=== PATIENT | male | born 1960 | race Caucasian/White ===

== ENCOUNTER → 2016-12-01 | Outpatient (CLI) | payer OTHER ==
[2016-12-01 09:59] LABS: BASO % 0.5 %; BASO ABS # 0.04 K/uL (0-0.2); COMPLETE YES; HEMATOCRIT 45.6 % (42-52); IG% 0.5 %; LYMPH % 29.5 %; LYMPH ABS # 2.25 K/uL (1.2-3.4); MEAN CELL VOLUME 82.2 fL (80-100); MEAN CORPUSCULAR HEMOGLOBIN 29.4 pg (25-34); MEAN CORPUSCULAR HGB CONC 35.7 g/dl (32-36); MEAN PLATELET VOLUME 10.5 fL (7.4-10.4); MONO % 7.6 %; NEUT % 56.9 %; PLATELET COUNT 217 K/uL (130-400); RED BLOOD COUNT 5.55 M/uL (4.7-6.1); WHITE BLOOD COUNT 7.62 K/uL (4.8-10.8)
[2016-12-01 10:21] LABS: ESTIMATED AVERAGE GLUCOSE 120 mg/dl; HA1C FLAG Normal (Normal)
[2016-12-01 10:29] LABS: ALT/SGPT 50 U/L (12-78); BLOOD UREA NITROGEN 13 mg/dl (7-18); BUN/CREATININE RATIO 11.5 (10-20); CALCIUM 9.5 mg/dl (8.5-10.1); CARBON DIOXIDE 25 mmol/L (21-32); CHLORIDE 103 mmol/L (98-107); CHOLESTEROL 223 mg/dl (0-200); GLUCOSE 100 mg/dl (70-99); POTASSIUM 3.5 mmol/L (3.5-5.1); SODIUM 137 mmol/L (136-145)
[2016-12-01 10:40] LABS: ALB/GLOB RATIO 1.3 (0.9-2); ALKALINE PHOSPHATASE 43 U/L (45-117); AST/SGOT 28 U/L (15-37); HDL CHOLESTEROL 45 mg/dl; LDL CHOLESTEROL CALCULATED 136 mg/dl; TRIGLYCERIDES 209 mg/dl (0-150); VERY LOW DENSITY LIPOPROT CALC 42 mg/dl
== END | disposition home or self-care (01) ==
LOC: C.LAB1850 09:27
PROVIDERS: ATTEND Internal Medicine Pulmonary Disease
DX: J45.909 Unspecified asthma, uncomplicated (principal); I10 Essential (primary) hypertension; J30.9 Allergic rhinitis, unspecified; E11.9 Type 2 diabetes mellitus without complications; E78.5 Hyperlipidemia, unspecified

== ENCOUNTER → 2017-09-14 | Outpatient (CLI) | payer OTHER ==
[2017-09-14 10:31] LABS: ALT/SGPT 54 U/L (12-78); BLOOD UREA NITROGEN 16 mg/dl (7-18); BUN/CREATININE RATIO 14.8 (10-20); CALCIUM 9.2 mg/dl (8.5-10.1); CARBON DIOXIDE 25 mmol/L (21-32); CHLORIDE 103 mmol/L (98-107); CHOLESTEROL 242 mg/dl (0-200); GLUCOSE 100 mg/dl (70-99); POTASSIUM 3.7 mmol/L (3.5-5.1); SODIUM 136 mmol/L (136-145); TRIGLYCERIDES 286 mg/dl (0-150); VERY LOW DENSITY LIPOPROT CALC 57 mg/dl
[2017-09-14 10:34] LABS: ALKALINE PHOSPHATASE 48 U/L (45-117); AST/SGOT 29 U/L (15-37); CHOLESTEROL/HDL RATIO 6.7; HDL CHOLESTEROL 36 mg/dl; LDL CHOLESTEROL CALCULATED 149 mg/dl
[2017-09-14 11:15] LABS: ESTIMATED AVERAGE GLUCOSE 128 mg/dl; HA1C FLAG Normal (Normal)
== END | disposition home or self-care (01) ==
LOC: C.LAB1850 09:24
PROVIDERS: ATTEND Physician Assistant
DX: J45.909 Unspecified asthma, uncomplicated (principal); J30.9 Allergic rhinitis, unspecified; E11.9 Type 2 diabetes mellitus without complications; E78.5 Hyperlipidemia, unspecified

== ENCOUNTER 2024-03-26 15:25 | Inpatient (IN) ==
--- NOTE | 2024-03-26 15:33 | Emergency Department Note ---
Impression & Plan Stroke-like symptoms ED Provider Note Provider: Andi Joe MD DATE OF SERVICE: 03/26/2024 CHIEF COMPLAINT: Stroke alert HISTORY OF PRESENT ILLNESS: Patient is a 63-year-old gentleman history of diabetes and hypertension as well as significantly stroke/ICH in August of this year with some resultant left-sided deficit presenting here today due to development of a facial droop and some left-sided numbness. Has some chronic weakness in the left arm and leg. Was here today at the hospital for a outpatient MRI when symptoms developed and came to the ER. Made a stroke alert from triage. No headache or trauma or syncope reported. does confirm that it seemed like it bit of facial droop. Patient self denies any dizziness or headache. Symptoms started at 3:30 PM. Does not even take aspirin as he was told he cannot take this. PAST MEDICAL HISTORY: As noted above MEDICATIONS: Reviewed home medications SOCIAL HISTORY: PHYSICAL EXAM: GENERAL: alert and oriented in no acute distress on stretcher Head: normocephalic and atraumatic EYES: No injection, discharge or icterus. PERRL, EOMI. NECK: Trachea midline. ENT: Mucous membranes pink and moist. LUNGS: Airway patent. No retractions. Breath sounds clear HEART: Regular rate and rhythm. No chest wall tenderness ABDOMEN: Soft and non-tender, without guarding or rebound. SKIN: Acyanotic, warm, dry, without rashes EXTREMITIES: Without swelling, tenderness or deformity foot drop brace in place in the left lower leg NEUROLOGICAL: Good strength leg raise on the left but diminished left foot drop. Diminished sensation left arm and leg as well as left cheek. Some left facial droop appreciable. No tongue deviation. Very slight slurred speech but no aphasia. Good strength of the right arm and again of the right leg. No numbness or tingling on the right arm or leg. EK bpm normal sinus rhythm. No PVC or PAC. No acute ST segment elevation or depression with a QTc of 440. CONTINUOUS CARDIAC MONITORING: was ordered and showed a heart rate of 80s bpm in normal sinus rhythm Patient's laboratory studies and imaging reviewed. Differential includes Infection, dehydration, metabolic abnormality, hypo/hyperglycemia, electrolyte disturbance, anemia, hypoxia, cardiac sources, intracerebral event, toxicologic, neurologic, as well as other pathologies. IMPRESSION/MEDICAL DECISION MAKING: Patient with some chronic deficits due to prior ICH/CVA in the past. CT of the head without acute bleed here today per radiology. CT angiogram was with some 30% bilateral stenosis as well as now what appears to be a new high-grade stenosis of the right cavernous ICA due to plaque. No other aneurysms reported. Patient with reports of some increased again numbness to left arm and leg and left face as well as middle of facial droop but able to converse. No indication for thrombolytics given history of unprovoked ICH in August. Angios without LVO for acute intervention. No seizure activity reported. Basic blood obtained. Question this could represent small CVA versus some kind of recrudescent pattern given history of left basal ganglia bleed in the past. Discussed with him and his coming into the hospital for further evaluation. Discussed with him need for MRI and further evaluation patient agreeable. Hospitalist team contacted. DIAGNOSIS: Strokelike symptoms DISPOSITION: Hospitalist will evaluate Patient was agreeable with this plan. 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) Family history of colon cancer in father Allergic rhinitis (Chronic) Vitamin D deficiency (Chronic) Hypertriglyceridemia (Chronic) Elevated liver enzymes (Chronic) Obesity (BMI 30-39.9) (Chronic) Nocturnal hypoxemia (Chronic) Erectile dysfunction Asthma (Chronic) per pt well controlled--uses inhalers prn Dyslipidemia (Chronic) Hypertension (Chronic) Severe obstructive sleep apnea (Chronic) cpap BPH (benign prostatic hyperplasia) Medical History Stroke Epistaxis Sinusitis with nasal polyps Seborrheic keratosis Lipoma Gout History of COVID-19 Hearing deficit Nasal congestion Prostatitis Type 2 diabetes mellitus Surgical History History of colonoscopy (~2022) History of wisdom tooth extraction S/P nasal endoscopy with nasal polypectomy History of hernia repair Family History Unknown No problems noted. Father Asthma Allergic rhinitis Hypertension Stroke Colon cancer Skin cancer Son Asthma Mother Pancreatic cancer Other No family history of adverse response to anesthesia No family history of bleeding disorder Social History Smoking Status: Never smoker Second Hand Exposure: No; Do You Dip or Chew Tobacco: No; Hx Alcohol Use: Yes Alcohol type: beer Alcohol Intake Frequency Comment: occasionally Hx Substance Use: No Preferred Language: Syrian Communication Ability: Effective Brush Polisher Required: No Beliefs That Will Affect Care: None marital status: / Current Living Situation: Spouse current occupational status: employed current occupation: construction Feels Safe at Home: Yes Assistive Devices: CPAP Allergies Allergies Allergy/AdvReac Type Severity Reaction Status Date / Time Tetracyclines Allergy Intermediate Hives Verified 03/26/24 16:00 Home Meds Home Medications Medication Instructions Recorded Confirmed fluticasone propionate 50 2 spray intranasal QAM 06/02/23 03/26/24 mcg/actuation nasal spray,suspension acetaminophen 325 mg tablet 650 mg PO Q6H PRN Pain (Scale 09/09/23 03/26/24 (Tylenol) Score 1-3) cholecalciferol (vitamin D3) 25 75 mcg PO DAILY 09/09/23 03/26/24 mcg (1,000 unit) capsule (Vitamin D3) mometasone-formoterol HFA 100 2 puff inhalation BID 09/25/23 03/26/24 mcg-5 mcg/actuation aerosol inhaler (Dulera) Previous Rx's Medication Instructions Recorded lancets 30 gauge (OneTouch Delica #100 ea 07/24/20 Lancets) OneTouch Verio test strips (blood #100 ea 08/09/21 sugar diagnostic) CPAP Machine #1 ea 01/10/22 icosapent ethyl 1 gram capsule 2 g (2 x 1 gram) PO BID #360 caps 09/25/23 (Vascepa) metformin 500 mg tablet,extended 1,000 mg (2 x 500 mg) PO QDD #180 09/25/23 release 24 hr tabs tamsulosin 0.4 mg capsule (Flomax) 0.4 mg PO DAILY #90 caps 09/25/23 carvedilol 6.25 mg tablet 6.25 mg PO BID #180 tabs 10/02/23 hydrochlorothiazide 25 mg tablet 25 mg PO DAILY #90 tabs 10/02/23 lisinopril 40 mg tablet 40 mg PO DAILY #30 tabs 10/10/23 pen needle, diabetic 32 gauge x #100 ea 10/12/2332" (BD Ultra-Fine Ana M Pen Needle) insulin glargine 100 unit/mL (3 40 unit (0.4 mL) subcut HS #45 mL 11/30/23 mL) subcutaneous pen (Lantus Solostar U-100 Insulin) montelukast 10 mg tablet 10 mg PO DAILY #90 tabs 01/22/24 pravastatin 40 mg tablet 40 mg PO DAILY #90 tabs 02/13/24 Results & Data (ED) Vital Signs Vital Signs - 24 hr 03/26/24 15:26 03/26/24 15:45 03/26/24 15:45 Temperature 36.7 C Temperature Source Oral Pulse Rate 89 Pulse Rate from SpO2 Sensor Respiratory Rate 16 Blood Pressure 165/88 H 161/88 H 161/88 H Blood Pressure Mean 113 116 116 Pulse Oximetry 95 Oxygen Delivery Method Room Air Oxygen Flow Rate Sepsis Recent Fever Within 48 Hours No Sepsis New/Unexplained Change in Mental Status Yes Sepsis Action Taken by Nursing No Action Required 03/26/24 15:53 03/26/24 15:54 03/26/24 16:00 Temperature Temperature Source Pulse Rate 87 80 Pulse Rate from SpO2 Sensor 78 Respiratory Rate 18 19 Blood Pressure 153/92 H Blood Pressure Mean 131 Pulse Oximetry 96 98 Oxygen Delivery Method Room Air Oxygen Flow Rate 0 Sepsis Recent Fever Within 48 Hours Sepsis New/Unexplained Change in Mental Status Sepsis Action Taken by Nursing 03/26/24 16:00 Temperature Temperature Source Pulse Rate 83 Pulse Rate from SpO2 Sensor 81 Respiratory Rate 19 Blood Pressure Blood Pressure Mean Pulse Oximetry 95 Oxygen Delivery Method Oxygen Flow Rate Sepsis Recent Fever Within 48 Hours Sepsis New/Unexplained Change in Mental Status Sepsis Action Taken by Nursing Laboratory Data 03/26/24 15:50 03/26/24 15:50 Lab Results 03/26/24 03/26/24 03/26/24 Range/Units 15:46 15:50 15:54 WBC 6.54 (4.8-10.8) K/ul RBC 4.99 (4.70-6.10) M/uL Hgb 14.8 (14.0-18.0) g/dl POC Hgb 13.3 L (14.0-18.0) g/dl Hct 40.3 L (42.0-52.0) % POC Hct 39 L (42-52) % MCV 80.8 (80.0-100.0) fL MCH 29.7 (25.0-34.0) pg MCHC 36.7 H (32.0-36.0) g/dL RDW Std Deviation 37.9 (36.4-46.3) fL RDW Coeff of Serge 13.2 (11.5-14.5) % Plt Count 228 (130-400) K/uL MPV 10.2 (9.4-12.4) fL POC Sodium 137 (135-144) mmol/L POC Potassium 3.3 (3.3-5.0) mmol/L POC Chloride 100 L (101-112) mmol/L POC Total CO2 25 (24-31) mmol/L POC Anion Gap 16.0 (16-25) mmol/L POC BUN 11 (7-18) mg/dl POC Creatinine 0.8 (0.6-1.3) mg/dl POC Glucose 103 H (70-99) mg/dl POC Glucose (other) 101 H (70-99) mg/dl POC Ioniz Calcium Anneliese 1.16 (1.12-1.32) mmol/l Administered Medications Discontinued Medications Ioversol (Optiray 320 125ml) 116 ml IV ONCE ONE Stop: 03/26/24 15:38 Last Admin: 03/26/24 15:37 Dose: 116 ml Documented By: MYNOR Imaging Data Radiologist's Impression: Chest X-Ray 03/26/24 15:28 XR chest 1V portable HISTORY: 63 years-old Male stroke alert acute strokelike symptoms COMPARISON: 09/09/2023 TECHNIQUE: AP view the chest FINDINGS: Cardiomediastinal and hilar silhouettes are unchanged. No pneumothorax or pleural effusion. The lungs are clear. Spondylotic spurring of the spine. IMPRESSION: No acute process. ACT 112: Negative or not required by law. The above report was generated using voice recognition software. It may contain grammatical, syntax or spelling errors. Electronically signed by: Vinicius Osman M.D. 03/26/2024 4:[address] 03/26/24 15:28 CT SCAN OF THE BRAIN WITHOUT IV CONTRAST CLINICAL HISTORY: Neurological deficit. Stroke like symptoms. COMPARISON STUDY: CT of the brain dated 09/09/2023. MRI of the brain dated 11/30/2023. TECHNIQUE: Unenhanced axial CT scan of the brain is performed from the vertex to the skull base. A dose lowering technique was utilized adhering to the principles of ALARA. CT DOSE: 547.75 mGy.cm FINDINGS: Brain parenchyma: There is age-related involutional change noting mild subcortical and periventricular microangiopathic disease. Encephalomalacia centered in the right thalamus is seen at the site of a prior intracranial hemorrhage. There is no hemorrhage, mass effect, or evidence of acute territorial ischemia by CT criteria. There is faint mineralization in the nasal ganglia. Adam-white matter differentiation is preserved. No extra-axial fluid collection is seen. Ventricles, sulci, cisterns: Prominent secondary to involutional change. Intracranial vasculature: There is atherosclerotic calcification of the cavernous carotid and vertebral arteries. Calvarium: Unremarkable. Sinuses and mastoids: There is mild mucosal thickening within the ethmoid and sphenoid sinuses. The mastoid air cells are well pneumatized. Orbits: The bony orbits are grossly intact. IMPRESSION: There is no hemorrhage, mass effect, or evidence of acute territorial ischemia by CT criteria. ACT 112: Negative or not required by law. Electronically signed by: Temo Senior M.D. 03/26/2024 3:45 PM Head CTA 03/26/24 15:29 CT angio head w con CLINICAL HISTORY: 63 years-old Male with L numb. Acute stroke like symptoms COMPARISON STUDY: Head CT of same day TECHNIQUE: Following the IV administration of 116 cc of Optiray, CT angiogram of the brain was performed from the skull base to the vertex. Images are reviewed in the axial, sagittal, and coronal planes. 3-D MIPS images are created and assessed. IV contrast was administered without complication. All measurements were obtained according to NASCET criteria. A dose lowering technique was utilized adhering to the principles of ALARA. CT DOSE: 529.6 mGy.cm FINDINGS: CT ANGIOGRAM OF THE BRAIN: Atherosclerosis noted within the internal carotid arteries, predominantly within the cavernous segments where there is mild stenosis on the left and high-grade stenosis on the right, image 72 series 3. The bilateral anterior and middle cerebral arteries are also patent. Dominant and patent left vertebral artery. Diminutive distal right vertebral artery, likely developmental. The basilar and posterior cerebral arteries appear patent. Dural sinuses appear patent. IMPRESSION: 1. High-grade stenosis of the cavernous segment right ICA secondary to atherosclerotic plaque. 2. Otherwise unremarkable CTA of the head. ACT 112: Negative or not required by law. The above report was generated using voice recognition software. It may contain grammatical, syntax or spelling errors. Electronically signed by: Vinicius Osman M.D. 03/26/2024 4:00 PM Neck CTA 03/26/24 15:29 NECK CTA HISTORY: Left-sided weakness. TECHNIQUE: Multiaxial CT images of the neck were performed following the intravenous administration of contrast to evaluate the major cervical vessels. 3D/MIP images were also obtained. Sagittal and coronal reformats were reviewed. All measurements were calculated based on NASCET criteria. A dose lowering technique was utilized adhering to the principles of ALARA. COMPARISON STUDY: CT neck 09/09/2023. Findings: 2 left lobe thyroid nodules measure up to 6 cm. Visualized portions of the lung apices are unremarkable. No cervical spine fracture is present. There is moderate plaque within the proximal bilateral internal carotid arteries. There is mild stenosis of the proximal right internal carotid artery of approximately 30%. No significant stenosis of the left internal carotid artery is noted. The right vertebral artery is diminutive on a congenital basis. The left vertebral artery is dominant and patent. No aneurysm or dissection within the major vessels of the neck. IMPRESSION: 1. Moderate plaque within the proximal bilateral internal carotid arteries. No severe stenoses. 30% stenosis of the proximal right internal carotid artery, unchanged. 2. Dominant, patent left vertebral artery. Diminutive right vertebral artery on a congenital basis. 3. Left lobe thyroid nodules, including a dominant 6 cm nodule. ACT 112: Negative or not required by law. Electronically signed by: Desmond Reeder M.D. 03/26/2024 3:56 PM Discharge Plan Visit Data Chief Complaint: TIA Symptoms Stated Complaint: NUMB LEFT SIDE, BRAIN FOG, FACIAL NUMBNESS, WEAKNE ED Provider: Andi Joe Discharge Problem: Stroke-like symptoms Patient Disposition: Being Evaluated by Hospitalist Forms Stand Alone Forms: [employer] Prescriptions Prescriptions: No Action (DME) OneTouch Verio test strips Strip See Dose Instructions .ROUTE .MEDSUPPLY Qty: 100 11RF Dose Instruction: As directed Rx Instructions: Test blood sugar 4 times a day hydrochlorothiazide 25 mg tablet 25 mg PO DAILY Qty: 90 3RF carvedilol 6.25 mg tablet 6.25 mg PO BID Qty: 180 3RF Rx Instructions: must administer with a meal/food lisinopril 40 mg tablet 40 mg PO DAILY Qty: 30 5RF (DME) pen needle, diabetic [BD Ultra-Fine Ana M Pen Needle] 32 gauge x 5/32" needle See Rx Instructions .ROUTE .MEDSUPPLY Qty: 100 3RF Rx Instructions: once daily for long acting insulin montelukast 10 mg tablet 10 mg PO DAILY Qty: 90 3RF Rx Instructions: TAKE 1 TABLET BY MOUTH EVERY DAY pravastatin 40 mg tablet 40 mg PO DAILY Qty: 90 3RF (DME) CPAP Machine Misc See Rx Instructions .MEDSUPPLY Qty: 1 0RF Rx Instructions: Auto CPAP 5-20 cm water pressure with heated humidifcation, tubing, and supplies. THI: 99+ years. insulin glargine [Lantus Solostar U-100 Insulin] 100 unit/mL (3 mL) insulin pen 40 unit subcut HS Qty: 45 3RF (DME) lancets [OneTouch Delica Lancets] 30 gauge misc See Dose Instructions .ROUTE .MEDSUPPLY Qty: 100 12RF Rx Instructions: Test blood sugar four times daily Dulera 100-5 mcg/actuation HFA aerosol inhaler 2 puff inhalation BID tamsulosin [Flomax] 0.4 mg capsule 0.4 mg PO DAILY Qty: 90 3RF metformin 500 mg tablet extended release 24 hr 1,000 mg PO QDD Qty: 180 3RF icosapent ethyl [Vascepa] 1 gram capsule 2 g PO BID Qty: 360 3RF fluticasone propionate 50 mcg/actuation spray,suspension 2 spray intranasal QAM Rx Instructions: SPRAY 2 SPRAYS INTO EACH NOSTRIL EVERY DAY acetaminophen [Tylenol] 325 mg Tablet 650 mg PO Q6H PRN (Reason: Pain (Scale Score 1-3)) cholecalciferol (vitamin D3) [Vitamin D3] 25 mcg (1,000 unit) Capsule 75 mcg PO DAILY Referrals Referrals: Bahman Polo MD [Primary Care Provider] -
--- NOTE | 2024-03-26 15:34 | ED Triage Note ---
Date of Service March 26, 2024 Provider in Triage Author: Jacinto Childs History of Present Illness This patient was briefly evaluated while in triage. An abbreviated physical exam was performed. This patient is a 63-year-old Male who presents to the ED for evaluation acute left arm/leg numbness x 30 minutes left facial droop hx of hemorrhagic CVA last fall w/residual weakness in LUE/LLE-was coming in for MRI when symptoms started not of blood thinners Physical Exam GENERAL: NAD NEURO: Left facial droop CARDIOVASCULAR: RRR RESPIRATORY: CTA EXT: gross motor LUE/LLE intact, AFO on LLE Initial orders for labs and / or imaging were placed and patient was placed in the waiting area until a bed is available. Please see further documentation for the full ED course.
[2024-03-26] MEDS: OPTIRAY 320 125ml IV ONE (15:37)
--- NOTE | 2024-03-26 15:46 | CT Scan Report ---
CT SCAN OF THE BRAIN WITHOUT IV CONTRAST CLINICAL HISTORY: Neurological deficit. Stroke like symptoms. COMPARISON STUDY: CT of the brain dated 09/09/2023. MRI of the brain dated 11/30/2023. TECHNIQUE: Unenhanced axial CT scan of the brain is performed from the vertex to the skull base. A do se lowering technique was utilized adhering to the principles of ALARA. CT DOSE: 547.75 mGy.cm FINDINGS: Brain parenchyma: There is age-related involutional change noting mild subcortical and periventricula r microangiopathic disease. Encephalomalacia centered in the right thalamus is seen at the site of a prior intracranial hemorrhage. There is no hemorrhage, mass effect, or evidence of acute territorial ischemia by CT criteria. There is faint mineralization in the nasal ganglia. Adam-white matter differ entiation is preserved. No extra-axial fluid collection is seen. Ventricles, sulci, cisterns: Prominent secondary to involutional change. Intracranial vasculature: There is atherosclerotic calcification of the cavernous carotid and vertebr al arteries. Calvarium: Unremarkable. Sinuses and mastoids: There is mild mucosal thickening within the ethmoid and sphenoid sinuses. The m astoid air cells are well pneumatized. Orbits: The bony orbits are grossly intact. IMPRESSION: There is no hemorrhage, mass effect, or evidence of acute territorial ischemia by CT sandrine henry. ACT 112: Negative or not required by law. Electronically signed by: Teom Senior M.D. 03/26/2024 3:45 PM
--- NOTE | 2024-03-26 15:57 | CT Scan Report ---
NECK CTA HISTORY: Left-sided weakness. TECHNIQUE: Multiaxial CT images of the neck were performed following the intravenous administration o f contrast to evaluate the major cervical vessels. 3D/MIP images were also obtained. Sagittal and cor onal reformats were reviewed. All measurements were calculated based on NASCET criteria. A dose low ering technique was utilized adhering to the principles of ALARA. COMPARISON STUDY: CT neck 09/09/2023. Findings: 2 left lobe thyroid nodules measure up to 6 cm. Visualized portions of the lung apices are unremarkable. No cervical spine fracture is present. There is moderate plaque within the proximal kelvin ateral internal carotid arteries. There is mild stenosis of the proximal right internal carotid arter y of approximately 30%. No significant stenosis of the left internal carotid artery is noted. The rig ht vertebral artery is diminutive on a congenital basis. The left vertebral artery is dominant and pa tent. No aneurysm or dissection within the major vessels of the neck. IMPRESSION: 1. Moderate plaque within the proximal bilateral internal carotid arteries. No severe stenoses. 30% s tenosis of the proximal right internal carotid artery, unchanged. 2. Dominant, patent left vertebral artery. Diminutive right vertebral artery on a congenital basis. 3. Left lobe thyroid nodules, including a dominant 6 cm nodule. ACT 112: Negative or not required by law. Electronically signed by: Desmond Reeder M.D. 03/26/2024 3:56 PM
--- NOTE | 2024-03-26 16:01 | CT Scan Report ---
CT angio head w con CLINICAL HISTORY: 63 years-old Male with L numb. Acute stroke like symptoms COMPARISON STUDY: Head CT of same day TECHNIQUE: Following the IV administration of 116 cc of Optiray, CT angiogram of the brain was perfor med from the skull base to the vertex. Images are reviewed in the axial, sagittal, and coronal planes . 3-D MIPS images are created and assessed. IV contrast was administered without complication. All me asurements were obtained according to NASCET criteria. A dose lowering technique was utilized adherin g to the principles of ALARA. CT DOSE: 529.6 mGy.cm FINDINGS: CT ANGIOGRAM OF THE BRAIN: Atherosclerosis noted within the internal carotid arteries, predominantly within the cavernous segmen ts where there is mild stenosis on the left and high-grade stenosis on the right, image 72 series 3. The bilateral anterior and middle cerebral arteries are also patent. Dominant and patent left vertebr al artery. Diminutive distal right vertebral artery, likely developmental. The basilar and posterior cerebral arteries appear patent. Dural sinuses appear patent. IMPRESSION: 1. High-grade stenosis of the cavernous segment right ICA secondary to atherosclerotic plaque. 2. Otherwise unremarkable CTA of the head. ACT 112: Negative or not required by law. The above report was generated using voice recognition software. It may contain grammatical, syntax o r spelling errors. Electronically signed by: Vinicius Osman M.D. 03/26/2024 4:00 PM
[2024-03-26 16:06] LABS: Hematocrit (blood only) 40.3 % (42.0-52.0); Hemoglobin 14.8 g/dl (14.0-18.0); Mean Corpuscular Hemoglobin 29.7 pg (25.0-34.0); Mean Corpuscular Hgb Conc 36.7 g/dL (32.0-36.0); Mean Corpuscular Volume 80.8 fL (80.0-100.0); Mean Platelet Volume 10.2 fL (9.4-12.4); Platelet Count 228 K/uL (130-400); RDW Coefficient of Variation 13.2 % (11.5-14.5); RDW Standard Deviation 37.9 fL (36.4-46.3); Red Blood Count 4.99 M/uL (4.70-6.10); White Blood Count 6.54 K/ul (4.8-10.8)
[2024-03-26 16:07] LABS: iSTAT Creatinine 0.8 mg/dl (0.6-1.3); iSTAT Hemoglobin 13.3 g/dl (14.0-18.0); iSTAT Ionized Calcium 1.16 mmol/l (1.12-1.32); iSTAT Potassium 3.3 mmol/L (3.3-5.0)
--- NOTE | 2024-03-26 16:21 | XRay Report ---
XR chest 1V portable HISTORY: 63 years-old Male stroke alert acute strokelike symptoms COMPARISON: 09/09/2023 TECHNIQUE: AP view the chest FINDINGS: Cardiomediastinal and hilar silhouettes are unchanged. No pneumothorax or pleural effusion. The lungs are clear. Spondylotic spurring of the spine. IMPRESSION: No acute process. ACT 112: Negative or not required by law. The above report was generated using voice recognition software. It may contain grammatical, syntax o r spelling errors. Electronically signed by: Vinicius Osman M.D. 03/26/2024 4:20 PM
--- NOTE | 2024-03-26 16:26 | History & Physical Report ---
Date of Service March 26, 2024 Assessment & Plan (1) Stroke-like symptoms: Plan: Admit to the PCU on telemetry Currently stable but with increased left-sided facial droop/numbness, and increased numbness in the left upper extremity/left lower extremity compared to previous baseline Presented as a stroke alert from MRI waiting room where he was waiting to have outpatient MRI for follow-up Symptoms presented acutely at approximately 3:30 PM Patient confirms he had all antihypertensives this a.m. Patient has been hypertensive since arrival with systolic blood pressure in the 150-160s and diastolic in the 80s-90s, patient and explained that his blood pressure normally runs with systolics in the 120s -130s. CT of the head and brain without contrast was read as negative for acute findings. CTA of the neck shows high-grade stenosis of the cavernous segment right ICA secondary to atherosclerotic plaque but was otherwise without acute findings. CTA of neck shows moderate plaque within the proximal bilateral internal carotids. No severe stenosis. 30% stenosis of the proximal right internal carotid artery, unchanged. Dominant, patent left vertebral artery. Diminutive right vertebral artery on a congenital basis. Left lobe thyroid nodules, including a dominant 6 cm nodule. At this time we will obtain MRI of the brain without contrast for further evaluation. If MRI of the brain shows signs consistent with new CVA the patient will be started on a baby [facility] Spoke with [facility] neurology regarding blood pressure parameters if patient is noted to have a new CVA, they recommend keeping his mean arterial pressure between 100-105 mmHg. Dysphagia screen, fall/aspiration precautions, every 4 hours neuro checks Bilateral SCDs for DVT prophylaxis, we are holding chemical DVT prophylaxis due to patient's history of previous brain hemorrhage If patient passes dysphagia screen will start heart healthy/DM 2 diet PT/OT and Neurology consults been placed A.m. CBC, CMP, mag, PT/INR, A1c, fasting lipid panel (2) Diabetes mellitus type 2, controlled, with complications: Plan: Monitor BSG ACHS, goal is [id number] Hold metformin Will start CF of 50, CR of 15 Normally takes 40 units SQ Lantus at bedtime, will decrease to 15 units twice daily for now as we are unsure how much she will eat overnight Follow-up a.m. A1c Adjust regimen as needed (3) History of hemorrhagic stroke with residual hemiparesis: Plan: See strokelike symptoms plan (4) Hypertension: Plan: Will hold home antihypertensives for now until MRI results are back As needed IV labetalol has been ordered for MAP greater than 105 as recommended per neurology (5) Hypertriglyceridemia: Plan: Continue pravastatin and Vascepa Follow a.m. fasting lipid panel (6) Severe obstructive sleep apnea: Plan: At bedtime CPAP ordered (7) BPH (benign prostatic hyperplasia): Plan: Continue Flomax Plan The patient was discussed with Dr. Dominique the time of the admission History of Present Illness Chief Complaint: stroke alert Primary Care Provider: Bahman Polo MD Ruben is a 63-year-old male with a past medical history significant for history of right thalamic/basal, ganglia hypertensive hemorrhage August 2023 (did not require intervention at [facility]), residual left hemiparesis and hemisensory deficit, hypertension, hyperlipidemia, DM type II, and severe TRIPP who presented to the [facility] ED From outpatient MRI due to acute onset of left-sided facial droop and increased left-sided numbness compared to baseline. The patient initially presented to the outpatient MRI area for routine imaging but was sent to the ED after acute onset of his symptoms. He was made a stroke alert shortly after arrival. He was noted to be hypertensive on arrival at 165/88 but was otherwise stable. Labs including CBC, CMP, PT/INR were in process at the time of admission. CT of the head and brain without contrast was read as negative for acute findings. CTA of the neck was read as moderate plaque within the proximal bilateral internal carotid arteries. No severe stenosis. 30% stenosis of the proximal right internal carotid artery, unchanged. Dominant, patent left vertebral artery. Diminutive right vertebral artery on a congenital basis.Left lobe thyroid nodules, including a dominant 6 cm nodule. CTA of the head was read as high-grade stenosis of the cavernous segment right ICA secondary to atherosclerotic plaque and otherwise negative for acute findings. Chest x-ray was read as The ED reported that they did not give the patient aspirin as the patient reported to them he was told to not take aspirin due to his previous hemorrhage. The case was not discussed with [facility] prior to admission. In bed in no acute distress at the time of exam with his bedside, history was obtained from both. The patient had been in his normal state of health since his previous right thalamic/basal ganglia hypertensive hemorrhage in August 2023 with baseline left-sided hemiparesis and mild chronic numbness of the left face, left upper extremity, and left lower extremity. He initially presented to the hospital today for outpatient MRI of the brain ordered by [facility] neurology for routine follow-up. While sitting in the waiting room at approximately 330 he had acute onset of increased numbness/tingling in the left face, LUE, LLE, and increased left-sided facial droop. He denies recent headache, fevers, chills, chest pain, shortness of breath, palpitations, abdominal pain, nausea/vomiting, dysuria, hematuria, melena, diarrhea, lower extremity swelling, and recent trauma. He feels as though his strength in the bilateral upper extremities and lower extremities are at baseline. He and his confirm that they were told he should not be on antiplatelets after his hemorrhagic CVA in 2022. The patient confirms he is a full code and his is his primary decision-maker if he cannot make decisions himself. Prior to admission we discussed the case with [facility] on-call neurologist who requested that the emergency department first call and speak with [place] [facility] to determine best place for this patient with his complicated history. The ED called and spoke with Dr. Butler of [place] [facility] team and discussed the case. He recommended obtaining MRI of the brain to first confirm whether or not the patient truly had a stroke. If he does have a new stroke on MRI he recommended starting the patient on a baby aspirin. He did not feel that the patient needed to be transferred to their facility. Please refer to Dr. Dominique's attestation for any changes to the treatment plan Allergies Allergy/AdvReac Type Severity Reaction Status Date / Time Tetracyclines Allergy Intermediate Hives Verified 03/26/24 16:00 Home Medications Medication Instructions Recorded Confirmed Type lancets 30 gauge (OneTouch Delica #100 ea 07/24/20 02/21/24 Rx Lancets) OneTouch Verio test strips (blood #100 ea 08/09/21 02/21/24 Rx sugar diagnostic) CPAP Machine #1 ea 01/10/22 02/21/24 Rx fluticasone propionate 50 2 spray intranasal QAM 06/02/23 03/26/24 History mcg/actuation nasal spray,suspension acetaminophen 325 mg tablet 650 mg PO Q6H PRN Pain (Scale 09/09/23 03/26/24 History (Tylenol) Score 1-3) cholecalciferol (vitamin D3) 25 75 mcg PO DAILY 09/09/23 03/26/24 History mcg (1,000 unit) capsule (Vitamin D3) icosapent ethyl 1 gram capsule 2 g (2 x 1 gram) PO BID #360 caps 09/25/23 03/26/24 Rx (Vascepa) metformin 500 mg tablet,extended 1,000 mg (2 x 500 mg) PO QDD #180 09/25/23 03/26/24 Rx release 24 hr tabs mometasone-formoterol HFA 100 2 puff inhalation BID 09/25/23 03/26/24 History mcg-5 mcg/actuation aerosol inhaler (Dulera) tamsulosin 0.4 mg capsule (Flomax) 0.4 mg PO DAILY #90 caps 09/25/23 03/26/24 Rx carvedilol 6.25 mg tablet 6.25 mg PO BID #180 tabs 10/02/23 03/26/24 Rx hydrochlorothiazide 25 mg tablet 25 mg PO DAILY #90 tabs 10/02/23 03/26/24 Rx lisinopril 40 mg tablet 40 mg PO DAILY #30 tabs 10/10/23 03/26/24 Rx pen needle, diabetic 32 gauge x #100 ea 10/12/23 02/21/24 Rx 5/32" (BD Ultra-Fine Ana M Pen Needle) insulin glargine 100 unit/mL (3 40 unit (0.4 mL) subcut HS #45 mL 11/30/23 03/26/24 Rx mL) subcutaneous pen (Lantus Solostar U-100 Insulin) montelukast 10 mg tablet 10 mg PO DAILY #90 tabs 01/22/24 03/26/24 Rx pravastatin 40 mg tablet 40 mg PO DAILY #90 tabs 02/13/24 03/26/24 Rx 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) Family history of colon cancer in father Allergic rhinitis (Chronic) Vitamin D deficiency (Chronic) Hypertriglyceridemia (Chronic) Elevated liver enzymes (Chronic) Obesity (BMI 30-39.9) (Chronic) Nocturnal hypoxemia (Chronic) Erectile dysfunction Asthma (Chronic) per pt well controlled--uses inhalers prn Dyslipidemia (Chronic) Hypertension (Chronic) Severe obstructive sleep apnea (Chronic) cpap BPH (benign prostatic hyperplasia) Medical History Stroke Epistaxis Sinusitis with nasal polyps Seborrheic keratosis Lipoma Gout History of COVID-19 Hearing deficit Nasal congestion Prostatitis Type 2 diabetes mellitus Surgical History History of colonoscopy (~2022) History of wisdom tooth extraction S/P nasal endoscopy with nasal polypectomy History of hernia repair Family History Unknown No problems noted. Father Asthma Allergic rhinitis Hypertension Stroke Colon cancer Skin cancer Son Asthma Mother Pancreatic cancer Other No family history of adverse response to anesthesia No family history of bleeding disorder Social History Smoking Status: Never smoker Tobacco Type: Smokeless Tobacco (Dip or Chew) Second Hand Exposure: No; Do You Dip or Chew Tobacco: No; Tobacco Cessation Education Requested by Patient: No Hx Alcohol Use: Yes Alcohol type: beer Alcohol Intake Frequency Comment: occasionally Hx Substance Use: No Preferred Language: Maltese Communication Ability: Effective Golf Cart Attendant Required: No Beliefs That Will Affect Care: None marital status: / Current Living Situation: Spouse current occupational status: employed current occupation: construction Other Information That Helps Us Care for You: No Feels Safe at Home: Yes Safety Concerns: Feels Safe At This Time Assistive Devices: CPAP and Wheelchair Physical Exam Physical Exam: Physical Exam: General: In no acute distress, stated age, well-nourished, non-toxic appearing HEENT: Patient with mild left-sided facial droop ( confirms this is more significant than baseline), no scleral icterus, pupils around round, symmetrical, and reactive to light, moist mucus membranes, trachea midline, no thyromegaly Chest/Pulm: No respiratory distress, symmetrical chest expansion, clear breath sounds throughout Cardiac: RRR, no murmurs noted Abdomen: Negative for ascites and bruising, normoactive bowel sounds, soft, non-tender to palpation throughout Musculoskeletal: No acute trauma on exam, 3/5 strength in the LUE and LLE, 5/5 in the RUE/RLE, chronic left foot drop is stable per patient Extremities: Radial, dorsalis pedis, and posterior tibial pulses are intact and symmetrical, no edema noted in the BL LE's Skin: Warm, dry, no rashes , lesions, or scars noted Neuro: Alert and oriented to person, place, month, year, and president, increased left-sided facial droop compared to baseline, CN II-XII tested and intact compared to patient's baseline (besides left-sided facial droop), patient with positive pronator drift and cerebellar testing in the LUE (patient confirms this is at his baseline since previous CVA), no tremors noted Psych: No acute distress, calm and cooperative during the exam Results & Data Results & Data Vital Signs (Past 12 Hours) Vital Signs Temp Pulse Resp BP Pulse Ox O2 Del Method O2 Flow Rate 03/26/24 16:00 83 19 95 03/26/24 16:00 153/92 H 03/26/24 15:54 80 19 98 03/26/24 15:53 87 18 96 Room Air 0 03/26/24 15:45 161/88 H 03/26/24 15:45 161/88 H 03/26/24 15:26 36.7 C 89 16 165/88 H 95 Room Air Laboratory Results Abnormal lab results 03/26/24 03/26/24 03/26/24 Range/Units 15:46 15:50 15:54 POC Hgb 13.3 L (14.0-18.0) g/dl Hct 40.3 L (42.0-52.0) % POC Hct 39 L (42-52) % MCHC 36.7 H (32.0-36.0) g/dL POC Chloride 100 L (101-112) mmol/L POC Glucose 103 H (70-99) mg/dl POC Glucose (other) 101 H (70-99) mg/dl Diagnostic Findings Abnormal lab results 03/26/24 03/26/24 03/26/24 Range/Units 15:46 15:50 15:54 POC Hgb 13.3 L (14.0-18.0) g/dl Hct 40.3 L (42.0-52.0) % POC Hct 39 L (42-52) % MCHC 36.7 H (32.0-36.0) g/dL POC Chloride 100 L (101-112) mmol/L POC Glucose 103 H (70-99) mg/dl POC Glucose (other) 101 H (70-99) mg/dl ECG Additional Comments: Normal sinus rhythm Minimal voltage criteria for LVH, may be normal variant ( R in aVL ) Borderline ECG When compared with ECG of 09-SEP-2023 15:45, No significant change was found Code Status & VTE Plan Code Status Full code VTE Prophylaxis Plan VTE Prophylaxis will be ordered: Yes Supervising Physician Co-Signing Physician Notes Patient seen and examined, chart reviewed, case discussed with Taiwo Cox PA-C and I agree with the assessment and plan as above except as otherwise noted Labs and images reviewed 63-year-old male with history of right basilar stroke, hypertensive hemorrhage 08/2023 treated without surgical intervention, has residual left hemiparesis sensory deficits presents to the ER for acute onset of left facial numbness/tingling, left upper/left lower extremity numbness/tingling, and increased left-sided facial droop compared to his normal baseline. At time bedside assessment symptoms are improved but not resolved. Patient reports he otherwise feels well, thinks his strength is at baseline and sensation is only around 80% back to normal. He notes that the sensation in his face never completely returned to normal. No headache. No vision changes. Thombolytics contraindicated due to history of ICH. Aspirin deferred on arrival to ER due to history of intracranial bleed. Following hospitalist consultation and discussion w/ neuro pt recommended for [facility] tertiary level evaluation. Case was reviewed by Dr. Gonzalez who agreed with MRI of the brain if new stroke is appreciated then should be started on baby aspirin otherwise this can be deferred and no indication for transfer at this time. Appreciate recommendations. Permissive hypertension control with labetalol. MRI pending. Agree with above. PG Care Time/CCT Total # of Minutes Spent Total Time Spent with Patient: Total time spent is greater than 50% in coordination of care (as documented) at patient's floor/unit and/or counseling patient: C[place] [id number] INT INP/OBS CARE MIN Patient Type Established Medical Decision Making High Complexity Diagnoses Stroke-like symptoms R29.90 Controlled type 2 diabetes mellitus with complication, with long-term current use of insulin E11.8; Z79.4 Diabetes mellitus oil heaterman insulin use: with snf use History of hemorrhagic stroke with residual hemiparesis I69.359 Primary hypertension I10 Hypertension type: primary hypertension Hypertriglyceridemia E78.1 Severe obstructive sleep apnea G47.33 BPH (benign prostatic hyperplasia) N40.0 (2) Diabetes mellitus type 2, controlled, with complications Diabetes mellitus oil heaterman insulin use: with oil heaterman use Qualified Code(s): E11.8 - Type 2 diabetes mellitus with unspecified complications; Z79.4 - half-way (current) use of insulin (4) Hypertension Hypertension type: primary hypertension Qualified Code(s): I10 - Essential (primary) hypertension
[2024-03-26 17:04] LABS: Albumin Level 3.9 gm/dl (3.4-5.0); Bilirubin,Total 0.3 mg/dl (0.2-1.0); Magnesium 1.9 mg/dl (1.7-2.4); Potassium 3.3 mmol/L (3.5-5.1)
[2024-03-26] MEDS ORDERED: CARBOHYDRATES FOR HYPOGLYCEMIA PO PRN (17:06)
[2024-03-26] MEDS ORDERED: GLUCAGON FOR INJ 1 MG VIAL SQ PRN (17:06)
[2024-03-26] MEDS ORDERED: GLUCOSE 10 TAB/TUBE PO PRN (17:06)
[2024-03-26] MEDS ORDERED: DEXTROSE 50% 50 ML SYRINGE IV PRN (17:06)
[2024-03-26] MEDS ORDERED: GLUCOSE 40% GEL 15 GM TUBE PO PRN (17:06)
[2024-03-26] MEDS ORDERED: PHARMACIST DISCHARGE MED REC CONSULT PRN (17:09)
[2024-03-26 17:10] LABS: Albumin Globulin Ratio 1.5 (0.9-2); BUN Creatinine Ratio 14.5 (10-20); Creatinine Clr Calc Pharmacy 103.5 ml/min; Est GFR (African American) 108.5 ml/min; Est GFR (Non-African American) 93.6 ml/min; Globulin 2.6 gm/dl (2.5-4.0); Total Protein 6.5 gm/dl (6.0-8.3)
[2024-03-26] MEDS ORDERED: LABETALOL HCL IV 5 MG/ML 20ML IV PRN (18:48)
[2024-03-26 18:52] LABS: INR 0.9 (0.9-1.1); Partial Thromboplastin Ratio 1.1; Partial Thromboplastin Time 29 Seconds (21-31); Prothrombin Time 10.1 Seconds (9.0-12.0)
[2024-03-26] MEDS ORDERED: ACETAMINOPHEN 325 MG TAB PO PRN (19:57)
--- NOTE | 2024-03-26 21:10 | Magnetic Resonance Report ---
Exam(s): MRI HEAD Without Contrast EXAM: MR Head Without Intravenous Contrast CLINICAL HISTORY: Reason for exam: stroke alert. TECHNIQUE: Magnetic resonance images of the head/brain without intravenous contrast in multiple planes. COMPARISON: 11/30/2023 FINDINGS: Brain: Very restricted diffusion involving the right rae radiata. Chronic right thalamic lacunar infarct. No hemorrhage. Ventricles: Unremarkable. No ventriculomegaly. Bones/joints: Unremarkable. No acute fracture. Sinuses: Unremarkable as visualized. No acute sinusitis. Mastoid air cells: Unremarkable as visualized. No mastoid effusion. Orbits: Unremarkable as visualized. IMPRESSION: Subtle acute right rae radiata infarct Communications: Call Doctor Stroke Electronically signed by: Claude Burns MD 03/26/24 21:09 PM
[2024-03-26] MEDS ORDERED: Nursing to Pharmacy Communication SCH (21:30)
[2024-03-26] MEDS: LANTUS PER UNIT CHARGE SQ SCH (21:57)
[2024-03-26] MEDS: ASPIRIN 81 MG ECTAB PO SCH (21:57)
[2024-03-26] MEDS: INSULIN ASPART PER UNIT CHARGE SC SCH (23:00)
[2024-03-27] MEDS: INSULIN ASPART PER UNIT CHARGE SC SCH ×2 (00:22→12:50)
[2024-03-27 06:08] LABS: Basophils # (auto) 0.02 K/uL (0.00-0.20); Basophils % (auto) 0.3 %; Eosinophils # (auto) 0.24 K/uL (0.00-0.50); Eosinophils % (auto) 3.8 %; Hematocrit (blood only) 42.8 % (42.0-52.0); Hemoglobin 15.2 g/dl (14.0-18.0); Immature Granulocytes # (auto) 0.04 K/uL (0.01-0.20); Immature Granulocytes % (auto) 0.6 %; Lymphocytes % (auto) 35.1 %; Mean Corpuscular Hemoglobin 28.8 pg (25.0-34.0); Mean Corpuscular Hgb Conc 35.5 g/dL (32.0-36.0); Mean Corpuscular Volume 81.1 fL (80.0-100.0); Monocytes # (auto) 0.57 K/uL (0.11-0.59); Monocytes % (auto) 9.1 %; Neutrophils # (auto) 3.19 K/uL (1.40-6.50); Neutrophils % (auto) 51.1 %; Platelet Count 203 K/uL (130-400); RDW Standard Deviation 37.5 fL (36.4-46.3); Red Blood Count 5.28 M/uL (4.70-6.10); White Blood Count 6.26 K/ul (4.8-10.8)
[2024-03-27 06:25] LABS: Albumin Globulin Ratio 1.4 (0.9-2); BUN Creatinine Ratio 11.5 (10-20); Bilirubin,Total 0.4 mg/dl (0.2-1.0); Calcium 9.2 mg/dl (8.6-10.3); Chol HDL Ratio 4.6 (0-5); Creatinine Clr Calc Pharmacy 109.1 ml/min; Est GFR (African American) 111.3 ml/min; Est GFR (Non-African American) 96.1 ml/min; Globulin 2.8 gm/dl (2.5-4.0); Potassium 3.4 mmol/L (3.5-5.1); Total Protein 6.8 gm/dl (6.0-8.3)
[2024-03-27 06:30] LABS: Prothrombin Time 10.8 Seconds (9.0-12.0)
[2024-03-27 07:20] LABS: Estimated Average Glucose 131 mg/dl; Hemoglobin A1C 6.2 % (4.5-5.6)
--- NOTE | 2024-03-27 07:40 | Hospitalist Progress Note ---
Date of Service March 27, 2024 Assessment & Plan (1) Acute CVA (cerebrovascular accident): (2) History of intracerebral hemorrhage without residual deficit: (3) Carotid stenosis, right: (4) Chronic cerebral ischemia: (5) Hemiparesis affecting left side as late effect of cerebrovascular accident: (6) Diabetes mellitus type 2, controlled, with complications: (7) Hypertriglyceridemia: (8) Dyslipidemia: (9) Hypertension: (10) Severe obstructive sleep apnea: Plan 63-year-old male with history of right basilar stroke, hypertensive hemorrhage 08/2023 treated without surgical intervention, has residual left hemiparesis sensory deficits presents to the ER for acute onset of left facial numbness/tingling, left upper/left lower extremity numbness/tingling, and increased left-sided facial droop compared to his normal baseline. Subtle acute right rae radiata infarct - increased left-sided facial droop/numbness, and increased numbness in the left upper extremity/left lower extremity. Now back to baseline - CTA with high grade stenosis on right ICA. Moderate plaque within the proximal bilateral internal carotids. MRI: Subtle acute right rae radiata infarct - Neurology consulted, aprec recommendations Dysphagia screen, fall/aspiration precautions, every 4 hours neuro checks PT/OT - outpatient - Continue Pravastatin 40 mg daily ( home dose) - Plavix 75 mg daily for 3 weeks then decreased to 75 mg every other day - Tight BP goal: Will do permissive HTN with goal of mean arterial pressure between 100-105 mmHg. Diabetes mellitus type 2, controlled, with complications: Hold home metformin - A1C 6.2 - Lantus 15 untis BID Normally takes 40 units SQ Lantus at bedtime, will decrease to 15 units twice daily for now as we are unsure how much she will eat overnight SSI - CF of 50, CR of 15 Monitor BSG ACHS, goal is [id number] Follow-up a.m. Adjust regimen as needed - Patient would benefit for GLP-1 or SGLT2 due CVD benefit, will defer change to his primary care History of hemorrhagic stroke with residual hemiparesis: See stroke like symptoms plan Hypertension: Will hold home antihypertensives - consider home meds restart tomorrow - Permissive HTN for now: - As needed IV labetalol has been ordered for MAP greater than 100 as recommended per neurology Hypertriglyceridemia: Continue pravastatin Fasting lipid panel reviewed Severe obstructive sleep apnea: At bedtime CPAP ordered BPH (benign prostatic hyperplasia): Continue Flomax Diet/FEN:DM2/Heart healthy after speech eval DVT prophylaxis: Bilateral SCDs for DVT prophylaxis, Plavix Code: Full code Dipo: PCU/Telemetry Admission and Anticipated Discharge Date Admission Date: March 26, 2024 Supervising Physician Co-Signing Physician Notes Attending attestation Pt seen and examined in concert with Dr. Ferrer. In agreement with the documented findings as noted in the resident documentation with any exceptions or additions as noted here. Patient feels that his symptoms are gradually improving and reports no headache, vision changes or sensation changes. On examination, S1/S2 nl RRR no MCG. CTAB. Abd NT/ND BS+ve. Ongoing CN symptoms as noted above. Right rae radiata infarct with history of CVA, ischemic and hemorrhagic - neuro consult - continue clopidogrel and keep MAP goal ~100 per recommendation w/ BP PRN. Consider restart regimen in AM. Else see resident documentation as noted. Mirian Miranda was seen this am, in no acute distress. Dr Echevarria in the room at the moment of visit. Denied any headaches, SOB, chills, chest pain, no visual disturbances. Refers his symptoms are back to baseline. His speech went salvador to normal. He still has residual left upper numbness, left lower and upper hemiparesis Review of Systems Review of Systems: as per HPI Physical Exam Constitutional: WD/WN, vitals as above ENMT: external ear and nose normal, oropharynx normal Respiratory: normal respiratory effort, lungs clear to auscultation Cardiovascular: RRR, no murmur, no edema Gastrointestinal (Abdomen): normal bowel sounds, soft, nontender, no hepatosplenomegaly Skin: no rashes, warm and dry Neurologic: normal touch/pain/proprioception, moves all extremities and awake Speech / Cognition: normal speech Motor/Sensory: no tremor Cranial Nerves: sense of smell intact, PERRL, normal accommodation, EOM intact bilaterally, able to rotate head bilaterally and able to elevate shoulders bilaterally; + nystagmus Gait: + gait assisted Coordination: + abnormal [id number] test Motor strength on left upper extremity and lower extremity 4/5 and decreased sensation Results & Data Results & Data Vital Signs (Past 12 Hours) Vital Signs Temp Pulse Pulse Resp BP Pulse Ox O2 Del Method 03/27/24 07:19 36.6 C 56 L 18 154/84 H 98 Room Air 03/27/24 03:25 65 12 91 03/27/24 02:59 36.8 C 52 L 17 121/77 95 CPAP 03/27/24 00:00 51 L 03/27/24 00:00 36.8 C 60 17 121/76 95 CPAP 03/26/24 23:41 62 13 93 03/26/24 20:31 Room Air 03/26/24 20:03 36.5 C 74 18 153/84 H 95 Room Air 03/26/24 20:00 59 L FiO2 03/27/24 07:19 03/27/24 03:25 21 03/27/24 02:59 03/27/24 00:00 03/27/24 00:00 03/26/24 23:41 21 03/26/24 20:31 03/26/24 20:03 03/26/24 20:00 Resident Activity Tracking Resident Involvement: Resident Care Provided Care Provided: Adult Hospital Medicine (6) Diabetes mellitus type 2, controlled, with complications Diabetes mellitus mcfp insulin use: with mcfp use Qualified Code(s): E11.8 - Type 2 diabetes mellitus with unspecified complications; Z79.4 - longterm (current) use of insulin (9) Hypertension Hypertension type: primary hypertension Qualified Code(s): I10 - Essential (primary) hypertension
[2024-03-27] MEDS: LANTUS PER UNIT CHARGE SQ SCH ×2 (08:46→21:02)
--- NOTE | 2024-03-27 09:36 | Neurology Consultation ---
Date of Consultation March 27, 2024 Assessment & Plan (1) Numbness and tingling of left arm and leg: (2) Hemiparesis affecting left side as late effect of cerebrovascular accident: (3) Acute CVA (cerebrovascular accident): (4) History of intracerebral hemorrhage without residual deficit: (5) Carotid stenosis, right: (6) Chronic cerebral ischemia: (7) Hypertension: Plan Patient had a right basal ganglia (plus thalamic) hypertension related intracerebral hemorrhage in August 2023. This has left him with a left hemiparesis and left hemisensory deficit. These had been improving slowly over time. He has been off all antiplatelet and anticoagulant medication since the hemorrhage (which occurred on baby aspirin). The patient has had a new right rae radiata stroke of a small nature resulting in some temporary increase in left-sided numbness, "foggy headedness", as well as some dysarthria. The symptoms have all improved nicely today and he is closer to baseline with his residual symptoms. Patient has some minor carotid stenosis and plaque in the neck (30% right ICA) noted on CT angiography. In addition he has a high-grade stenosis distally in the right internal carotid artery, seemingly new compared to August 2023. He has chronic cerebral ischemia of a mild nature and risk factors for ischemic stroke including hypertension, diabetes, obstructive sleep apnea, and dyslipidemia. Recommendations: 1. After discussion, I think it is reasonable to treat with antiplatelet medication as he is at much greater risk of having another ischemic stroke than the risk of a new intracerebral hemorrhage. As long as the blood pressure is being controlled, I think his risk of intracerebral hemorrhage is low. Nevertheless, initiating antiplatelet medication would put him at somewhat higher risk of intracerebral hemorrhage Initiate clopidogrel 75 mg daily for 3 weeks then decrease to 75 mg every other day. I think this is a better choice for him given his progressive carotid issues than aspirin. 2. Continue high-dose statin (pravastatin 40 mg daily). 3. Control blood pressure as you are doing, aiming for a mean arterial pressure of approximately 95-100 4. Control glucose as you are doing. 5. Consider speech, physical, and occupational therapy. Increase activity as able 6. Awaiting echocardiogram Overall, I spent a total of 100 minutes with this case including review of records, review of MRI and CT films, direct evaluation the patient at bedside, report generation, and discussion of the case with the patient and RN at bedside and Dr. Schultz, including differential diagnosis and treatment options. History of Present Illness Reason for Consultation: Patient is a 63-year-old, who I was asked to see at the request of Taiwo Cox PA-C for neurologic evaluation regarding stroke Requesting Physician: Taiwo Cox PA-C Attending Physician: Jax Villarreal MD History of Present Illness This patient has a 10-year history of hypertension as well as a 5+ year history of type 2 diabetes. He has had obstructive sleep apnea on CPAP for 2 years and a history of dyslipidemia. Prior to August 2023 he was on an 81 mg aspirin tablet daily (for 2 years at least), lisinopril and pravastatin. On August 23, 2023 the patient had the onset of left sided numbness including face, arm, and leg. Within minutes, he was weak in the left face arm and leg (the arm and leg were flaccid). He came to the emergency room and blood pressure was 192/87, and then a little later 221/416. CT scan of the head showed a 3.5 x 2.5 cm right basal ganglia intracranial hemorrhage. He was sent to [place] where he stayed for 3 days. Aspirin was discontinued. He received no neurosurgical or other procedure. He was discharged to [facility] where he stayed till the end of the month. On September 09, he had an increase in left face and leg numbness and went to the ER. CAT scan of the head showed improving hemorrhage. CT angiography of the head was unremarkable. CT angiography of the neck revealed some plaque and approximately 30% stenosis of the right internal carotid artery. He was sent back to [facility]. He was discharged to home on September 16. He had made improvements in his strength of his numbness on the left side as well as the weakness. He saw Dr. Denise September 02 and was still improving with his left-sided weakness. An MRI of the brain November 29 showed the old right basal ganglia stroke with residual blood products and some mild old small vessel ischemic disease. He followed up in the office on February 01 and was stable. The patient was scheduled for a follow-up MRI on March 26. He woke up around 0500 March 26 and felt "foggy headed". This was nonspecific but lasted the whole day. He drove to the hospital and around 1500 he got out of the car and by the time he got inside to the waiting room, he had an increase in numbness (lack of feeling, not tingling) and the whole left face, left upper extremity including shoulder, and left foot (not the rest of the leg). He really did not feel any weaker than usual but he did have a little bit of slurred speech. He did not get the MRI and was sent to the emergency room He arrived at the emergency room March 26 and 1525, with a temperature of 36.7, pulse 89 and regular, respiratory rate 16, blood pressure 165/88, and O2 saturation 95%. His exam revealed the left-sided weakness and numbness as before. He was noted to have mild slurred speech without aphasia. CBC and CHEM profile were largely unremarkable. His potassium was mildly low and a glucose was 117 CT scan of the head showed no hemorrhage and the old right basal ganglia/thalamic infarct. CT angiography of the head revealed a high-grade stenosis in the distal right internal carotid artery. This was not present in the previous CT angiography of September 09, 2023. CT angiography of the neck revealed the plaque and 30% right ICA stenosis as before (unchanged). MRI of the brain revealed a subtle new right rae radiata acute stroke with t he old right basal ganglia/thalamic stroke as before and the mild old small vessel ischemic changes as before. I reviewed these films. Today the patient feels that his speech is back to baseline. His numbness is less on the left side but he still has a residual in the face and arm (back to his baseline). The foot is not numb. He feels his strength is at baseline and he has not "foggy headed" anymore. He does not have pain or headache and he does not have lightheadedness. There are no vision changes. Hemoglobin A1c is 6.2, triglycerides 266, total cholesterol 165, blood pressure this morning 154/84. Allergies Allergy/AdvReac Type Severity Reaction Status Date / Time Tetracyclines Allergy Intermediate Hives Verified 03/26/24 16:00 Home Medications Medication Instructions Recorded Confirmed Type lancets 30 gauge (OneTouch Delica #100 ea 07/24/20 02/21/24 Rx Lancets) OneTouch Verio test strips (blood #100 ea 08/09/21 02/21/24 Rx sugar diagnostic) CPAP Machine #1 ea 01/10/22 02/21/24 Rx fluticasone propionate 50 2 spray intranasal QAM 06/02/23 03/26/24 History mcg/actuation nasal spray,suspension acetaminophen 325 mg tablet 650 mg PO Q6H PRN Pain (Scale 09/09/23 03/26/24 History (Tylenol) Score 1-3) cholecalciferol (vitamin D3) 25 75 mcg PO DAILY 09/09/23 03/26/24 History mcg (1,000 unit) capsule (Vitamin D3) icosapent ethyl 1 gram capsule 2 g (2 x 1 gram) PO BID #360 caps 09/25/23 03/26/24 Rx (Vascepa) metformin 500 mg tablet,extended 1,000 mg (2 x 500 mg) PO QDD #180 09/25/23 03/26/24 Rx release 24 hr tabs mometasone-formoterol HFA 100 2 puff inhalation BID 09/25/23 03/26/24 History mcg-5 mcg/actuation aerosol inhaler (Dulera) tamsulosin 0.4 mg capsule (Flomax) 0.4 mg PO DAILY #90 caps 09/25/23 03/26/24 Rx carvedilol 6.25 mg tablet 6.25 mg PO BID #180 tabs 10/02/23 03/26/24 Rx hydrochlorothiazide 25 mg tablet 25 mg PO DAILY #90 tabs 10/02/23 03/26/24 Rx lisinopril 40 mg tablet 40 mg PO DAILY #30 tabs 10/10/23 03/26/24 Rx pen needle, diabetic 32 gauge x #100 ea 10/12/23 02/21/24 Rx 5/32" (BD Ultra-Fine Ana M Pen Needle) insulin glargine 100 unit/mL (3 40 unit (0.4 mL) subcut HS #45 mL 11/30/23 03/26/24 Rx mL) subcutaneous pen (Lantus Solostar U-100 Insulin) montelukast 10 mg tablet 10 mg PO DAILY #90 tabs 01/22/24 03/26/24 Rx pravastatin 40 mg tablet 40 mg PO DAILY #90 tabs 02/13/24 03/26/24 Rx Patient History Medical History Stroke Epistaxis Sinusitis with nasal polyps Seborrheic keratosis Lipoma Gout History of COVID-19 2019--mild symptoms, no symptoms now Hearing deficit Nasal congestion Prostatitis Type 2 diabetes mellitus IDDM Surgical History History of colonoscopy (~2022) History of wisdom tooth extraction S/P nasal endoscopy with nasal polypectomy History of hernia repair Family History Unknown No problems noted. Father Asthma Allergic rhinitis Hypertension Stroke Colon cancer Skin cancer Son Asthma Mother Pancreatic cancer Other No family history of adverse response to anesthesia No family history of bleeding disorder Social History Smoking Status: Never smoker Tobacco Type: Smokeless Tobacco (Dip or Chew) Second Hand Exposure: No; Do You Dip or Chew Tobacco: No; Tobacco Cessation Education Requested by Patient: No Hx Alcohol Use: Yes Alcohol type: beer Alcohol Intake Frequency Comment: occasionally Hx Substance Use: No Preferred Language: Yoruba Communication Ability: Effective Superintendent Renting Managing Required: No Beliefs That Will Affect Care: None marital status: / Current Living Situation: Spouse current occupational status: employed current occupation: construction Other Information That Helps Us Care for You: No Feels Safe at Home: Yes Safety Concerns: Feels Safe At This Time Assistive Devices: CPAP and Wheelchair Review of Systems Constitutional: no fever, no fatigue and no weakness Eyes: no diplopia, no eye pain and no worsening vision Ear, Nose, Mouth, Throat: + hearing loss; no ear pain, no tinnitus , no dizziness, no snoring, no hoarseness and no dysphagia Respiratory: no cough and no dyspnea Cardiovascular: no chest pain, no palpitations and no lightheadedness Gastrointestinal: no abdominal pain, no nausea and no vomiting Musculoskeletal: no back pain, no neck pain, no radicular pain, no joint pain and no myalgia Integumentary: no rash and no lesions Neurologic: + gait abnormality, + localized weakness and + numbness; no generalized weakness, no tingling, no tremor(s), no abnormal movements, no headache(s), no abnormal speech, no confusion and no memory loss Psychiatric: no depression, no irritability, no anxiety, no difficulty concentrating, no confusion and no hallucinations Endocrine: no fatigue and no flushing Hematologic / Lymphatic: no easy bleeding and no easy bruising Allergy / Immunological: no urticaria and no problem reported Exam (Neuro) Physical Exam: The patient is right-handed. The patient is awake, alert, and attentive. Speech is normal without any obvious aphasia. A very slight dysarthria may be present but this is likely old and related to his decreased facial movement. Mentation and thought processes are intact, with full orientation and normal fund of knowledge. Mood and affect are normal and appropriate. Appearance and grooming are normal. Short and long-term memory are intact to conversation. Pupils are 4 mm bilaterally and reactive to light. Extraocular eye muscles are intact without nystagmus. Visual acuity and visual davis seem normal grossly to confrontation. There is decreased sensation to pin and sharp in the left forehead cheek and jaw compared to the right which is normal. Corneal reflexes are positive bilaterally. He has a facial droop on the left but it moves some with voluntary smile. He can hold air in his cheeks bilaterally equally well. Hearing seems intact grossly to voice and finger rub bilaterally. Palate moves well without asymmetry. There is normal sternocleidomastoid and trapezius streng th bilaterally. Tongue is midline with good strength bilaterally. Neck has a full range of motion without discomfort. There are no cervical bruits bilaterally. There are no cranial or ocular bruits. Heart is without murmur. There is a regular rhythm and rate. Cervical, thoracic, and lumbar spine are nontender to palpation. Stance sitting up in bed is normal. Stance with feet dangling is reasonable and he can get to his feet if he holds onto something with his right hand. Standing with feet together and eyes open is reasonably stable. He circumduct his left leg. With outstretched arms there is obvious drift on the left. There are no resting, postural, or action tremors. There is ataxia (secondary to weakness) with finger-nose testing on the left. There is decreased facility and clumsiness of the left hand compared to the right which is normal. Motor strength is 5/5 diffusely in the right arm and right leg both proximally and distally with good tone. Motor strength is 4/5 diffusely in the left upper extremity with some increased tone/spasticity. Left leg strength is 4+/5 proximally and 4/5 distally. Sensory examination reveals decreased sensation to pin in the entire left upper extremity and left lower extremity, compared to the right which is normal. Reflexes are 2/4 in the left biceps, triceps, brachioradialis, quadriceps, and Achilles tendons. On the right side, all these reflexes are 1/4. Toes are downgoing with plantar stimulation on the right and upgoing with plantar stimulation on the left. Peripheral pulses are present and of normal quality distally in all 4 limbs. There is no peripheral edema noted in the limbs. Results & Data Vital Signs (Past 12 Hours) Vital Signs Temp Pulse Pulse Resp BP Pulse Ox O2 Del Method 03/27/24 07:19 36.6 C 56 L 18 154/84 H 98 Room Air 03/27/24 03:25 65 12 91 03/27/24 02:59 36.8 C 52 L 17 121/77 95 CPAP 03/27/24 00:00 51 L 03/27/24 00:00 36.8 C 60 17 121/76 95 CPAP 03/26/24 23:41 62 13 93 FiO2 03/27/24 07:19 03/27/24 03:25 21 03/27/24 02:59 03/27/24 00:00 03/27/24 00:00 03/26/24 23:41 21 PG Care Time/CCT Total # of Minutes Spent Total Time Spent with Patient: Total time spent is greater than 50% in coordination of care (as documented) at patient's floor/unit and/or counseling patient: Coding Level of Care Code 34871 INT INP/OBS CARE 3/75MIN Diagnoses Numbness and tingling of left arm and leg R20.0; R20.2 Hemiparesis affecting left side as late effect of cerebrovascular accident I69.354 Acute CVA (cerebrovascular accident) I63.9 History of intracerebral hemorrhage without residual deficit Z86.79 Carotid stenosis, right I65.21 Chronic cerebral ischemia I67.82 Primary hypertension I10 Hypertension type: primary hypertension Time Spent (min) 100 (7) Hypertension Hypertension type: primary hypertension Qualified Code(s): I10 - Essential (primary) hypertension
[2024-03-27] MEDS ORDERED: Nursing to Pharmacy Communication SCH (11:00)
[2024-03-27] MEDS: CLOPIDOGREL BISULFATE 75 MG TAB PO SCH (11:05)
[2024-03-27] MEDS: FLUTICASONE/VILANTEROL 100/25MCG 14 PUFFS/INHALER INH SCH (11:05)
[2024-03-27] MEDS: TAMSULOSIN HCL 0.4 MG CAP PO SCH (11:06)
[2024-03-27] MEDS: PRAVASTATIN SOD 40 MG TAB PO SCH (11:06)
--- NOTE | 2024-03-27 12:40 | Electrocardiogram Report ---
Test Reason : Blood Pressure : / mmHG Vent. Rate : 086 BPM Atrial Rate : 086 BPM P-R Int : 176 ms QRS Dur : 096 ms QT Int : 368 ms P-R-T Axes : 057 -16 047 degrees QTc Int : 440 ms Normal sinus rhythm Minimal voltage criteria for LVH, may be normal variant Borderline ECG When compared with ECG of 09-SEP-2023 15:45, No significant change was found Confirmed by Jax Salinas ([id number]) on 03/27/2024 12:40:23 PM Referred By: REFERRED SELF Confirmed By:Valentin Salinas
--- NOTE | 2024-03-27 14:26 | Pharmacy Report ---
- Date of Service March 27, 2024 - Pharmacy CVA/TIA Medication Review Medications to Prevent Stroke handout has been added to the patients discharge packet. Antiplatelet(s) * Clopidogrel Cholesterol * Per Dr. Sage Hackett - High intensity statin deferred due to history of he morrhagic stroke DVT Prophylaxis * SCD knee Therapeutic Anticoagulation * No history of Afib/Aflutter noted Type 2 Diabetes * Patient has T2DM, but per Dr. Sage Hackett, a diabetes medication with proven CVD benefit will be deferred to their outpatient provider due to familiarity with risks/benefits of such therapies. "Medications to prevent stroke" handout has already been added to the patient's discharge packet, which instructs the patient to follow up with their outpatient provider to evaluate which diabetes medication with proven CVD benefit is best for them
--- NOTE | 2024-03-27 20:17 | XCELERA ---
[id number] \\[id number]
[2024-03-28 06:29] LABS: Basophils # (auto) 0.02 K/uL (0.00-0.20); Basophils % (auto) 0.3 %; Eosinophils # (auto) 0.22 K/uL (0.00-0.50); Eosinophils % (auto) 3.5 %; Hematocrit (blood only) 44.9 % (42.0-52.0); Hemoglobin 15.6 g/dl (14.0-18.0); Immature Granulocytes # (auto) 0.03 K/uL (0.01-0.20); Immature Granulocytes % (auto) 0.5 %; Lymphocytes % (auto) 36.9 %; Mean Corpuscular Hemoglobin 28.8 pg (25.0-34.0); Mean Corpuscular Hgb Conc 34.7 g/dL (32.0-36.0); Mean Corpuscular Volume 82.8 fL (80.0-100.0); Mean Platelet Volume 9.8 fL (9.4-12.4); Monocytes # (auto) 0.51 K/uL (0.11-0.59); Monocytes % (auto) 8.2 %; Neutrophils # (auto) 3.16 K/uL (1.40-6.50); Neutrophils % (auto) 50.6 %; Platelet Count 204 K/uL (130-400); RDW Coefficient of Variation 13.2 % (11.5-14.5); RDW Standard Deviation 39.4 fL (36.4-46.3); Red Blood Count 5.42 M/uL (4.70-6.10); White Blood Count 6.24 K/ul (4.8-10.8)
[2024-03-28 06:55] LABS: Albumin Globulin Ratio 1.4 (0.9-2); Albumin Level 3.9 gm/dl (3.4-5.0); BUN Creatinine Ratio 14.6 (10-20); Bilirubin,Total 0.5 mg/dl (0.2-1.0); Calcium 9.1 mg/dl (8.6-10.3); Creatinine Clr Calc Pharmacy 103.6 ml/min; Est GFR (African American) 109.1 ml/min; Est GFR (Non-African American) 94.1 ml/min; Globulin 2.7 gm/dl (2.5-4.0); Magnesium 2.1 mg/dl (1.7-2.4); Potassium 3.5 mmol/L (3.5-5.1); Total Protein 6.6 gm/dl (6.0-8.3)
[2024-03-28 07:04] LABS: Prothrombin Time 10.6 Seconds (9.0-12.0)
--- NOTE | 2024-03-28 09:22 | Neurology Progress Note ---
Date of Service March 28, 2024 Assessment & Plan (1) Numbness and tingling of left arm and leg: (2) Hemiparesis affecting left side as late effect of cerebrovascular accident: (3) Acute CVA (cerebrovascular accident): (4) History of intracerebral hemorrhage without residual deficit: (5) Carotid stenosis, right: (6) Chronic cerebral ischemia: (7) Hypertension: Plan Patient had a right basal ganglia/thalamic hypertensive intracerebral hemorrhage in August 2023. This has left him with a moderate left hemiparesis and left hemisensory deficit. These had been improving slowly over time. He has been off all antiplatelet and anticoagulant medication since the hemorrh age (which occurred on baby aspirin). The patient probably had a new, very tiny, thalamic area acute stroke, resulting in some temporary increase in left-sided numbness, "foggy headedness", as well a s some dysarthria. It was likely at the border or extension of the previous hemorrhagic stroke. The symptoms have all improved nicely, and he is basically at baseline with his residual symptoms. MRI films were reviewed with Dr. Amezcua. Patient has some minor carotid stenosis and plaque in the neck (30% right ICA) noted on CT angiography. In addition he has a moderate stenosis distally in the right internal carotid artery, probably slightly worse than August 2023. These CTA films were reviewed with Dr. Amezcua. He has chronic cerebral ischemia of a mild nature and risk factors for ischemic stroke including hypertension, diabetes, obstructive sleep apnea, and dyslipidemia. Recommendations: 1. Continue clopidogrel 75 mg daily for 3 weeks then consider decrease to 75 mg every other day. 2. Continue high-dose statin (pravastatin 40 mg daily). 3. Control blood pressure as you are doing, aiming for a mean arterial pressure of approximately 95-100 4. Control glucose as you are doing. 5. Speech, physical, and occupational therapy. Increase activity as able 6. Follow-up with Namrata Pimentel PA-C, neurology 3 to 4 weeks after discharge Overall, I spent a total of 50 minutes with this case including review of records, review of MRI and CT films, direct evaluation the patient at bedside, report generation, and discussion of the case with the patient and RN at bedside and Dr. Schultz, including differential diagnosis and treatment options. Admission and Anticipated Discharge Date Admission Date: March 26, 2024 Subjective Patient has no complaint of pain or headache. He believes that his numbness is markedly improved and back to his baseline numbness in the face arm and leg. His strength is back to baseline in the face arm and leg as well. His speech is improved and he does not feel that he has any speech deficits past his usual. Echocardiogram revealed mild left ventricular hypertrophy otherwise was largely unremarkable. Blood pressure was 166/84 today. CBC, CHEM profile were unremarkable. Hemoglobin A1c was 6.2 and triglycerides 216. I reviewed the CT angiography and MRIs with Dr. Senior, radiology, this morning. There may have been a very slight stroke of an acute nature next to his previous stroke in the right thalamic region. The rae radiata changes are likely "shine through" and not suggestive of a new/acute event. In addition, the carotid siphon area stenosis in the right internal carotid artery is probably about the same as it was in August 2023, although may be slightly worse). Results & Data Vital Signs (Past 12 Hours) Vital Signs Temp Pulse Pulse Resp BP Pulse Ox O2 Del Method 03/28/24 08:00 46 L 03/28/24 07:32 36.7 C 68 18 166/84 H 93 Room Air 03/28/24 03:35 62 14 95 03/28/24 03:33 36.6 C 59 L 18 127/72 97 Room Air 03/28/24 00:00 51 L 03/27/24 22:35 36.5 C 114 H 16 135/76 96 Room Air 03/27/24 22:00 60 14 96 Exam (Neuro) Physical Exam: He is awake and alert. Speech is without aphasia or dysarthria. Mood and affec t are normal and appropriate. Thought processes are intact to conversation Extraocular eye muscles are intact without nystagmus. He has some mild facial droop as before but it does move on voluntary command. Patient has a drift on the left without tremor. There is clumsiness in the left hand and 4/5 strength diffusely in the left upper extremity as per yesterday. Strength is 4+/5 proximally and 4/5 distally in the left lower extremity as per yesterday. Right side is stronger as before. PG Care Time/CCT Total # of Minutes Spent Total Time Spent with Patient: Total time spent is greater than 50% in coordination of care (as documented) at patient's floor/unit and/or counseling patient: Coding Level of Care Code 96714 SUB INP/OBS CARE 3/50MIN Diagnoses Numbness and tingling of left arm and leg R20.0; R20.2 Hemiparesis affecting left side as late effect of cerebrovascular accident I69.354 Acute CVA (cerebrovascular accident) I63.9 History of intracerebral hemorrhage without residual deficit Z86.79 Carotid stenosis, right I65.21 Chronic cerebral ischemia I67.82 Primary hypertension I10 Hypertension type: primary hypertension (7) Hypertension Hypertension type: primary hypertension Qualified Code(s): I10 - Essential (primary) hypertension
[2024-03-28] MEDS: lisinopril 40 MG TAB PO SCH (09:24)
[2024-03-28] MEDS: hydroCHLOROthiazide 25 MG TAB PO SCH (11:00)
[2024-03-28] MEDS: carvediloL 6.25 MG TAB PO SCH (11:01)
--- NOTE | 2024-03-28 11:28 | Discharge Summary ---
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 The patient initially presented to the outpatient MRI area for routine imaging but was sent to the ED after acute onset of his symptoms. He was made a stroke alert shortly after arrival. He was noted to be hypertensive on arrival at 165/88 but was otherwise stable. Labs including CBC, CMP, PT/INR were in process at the time of admission. CT of the head and brain without contrast was read as negative for acute findings. CTA of the neck was read as moderate plaque within the proximal bilateral internal carotid arteries. No severe steno sis. 30% stenosis of the proximal right internal carotid artery, unchanged. Dominant, patent left vertebral artery. Diminutive right vertebral artery on a congenital basis.Left lobe thyroid nodules, including a dominant 6 cm nodule. CTA of the head was read as high-grade stenosis of the cavernous segment right ICA secondary to atherosclerotic plaque and otherwise negative for acute findings. Chest x-ray was read as The ED reported that they did not give the patient aspirin as the patient reported to them he was told to not take aspirin due to his previous hemorrhage. The case was not discussed with [facility] prior to admission. In bed in no acute distress at the time of exam with his bedside, history was obtained from both. The patient had been in his normal state of health since his previous right thalamic/basal ganglia hypertensive hemorrhage in August 2023 with baseline left-sided hemiparesis and mild chronic numbness of the left face, left upper extremity, and left lower extremity. He initially presented to the hospital today for outpatient MRI of the brain ordered by [facility] neurology for routine follow-up. While sitting in the waiting room at approxi mately 330 he had acute onset of increased numbness/tingling in the left face, LUE, LLE, and increased left-sided facial droop. He denies recent headache, fevers, chills, chest pain, shortness of breath, palpitations, abdominal pain, nausea/vomiting, dysuria, hematuria, melena, diarrhea, lower extremity swelling, and recent trauma. He feels as though his strength in the bilateral upper extremities and lower extremities are at baseline. He and his confirm that they were told he should not be on antiplatelets after his hemorrhagic CVA in 2022. The patient confirms he is a full code and his is his primary decision-maker if he cannot make decisions himself. Prior to admission we discussed the case with [facility] on-call neurologist who requested that the emergency department first call and speak with [facility] to determine best place for this patient with his complicated history. The ED called and spoke with Dr. Butler of [facility] team and discussed the case. He recommended obtaining MRI of the brain to first confirm whether or not the patient truly had a stroke. If he does have a new stroke on MRI he recommended starting the patient on a baby aspirin. He did not feel that the patient needed to be transferred to their facility. Please refer to Dr. Dominique's attestation for any changes to the treatment plan Principal Diagnosis Ischemic stroke Discharge Exam Constitutional: WD/WN, vitals as above ENMT: external ear and nose normal, oropharynx normal Respiratory: normal respiratory effort, lungs clear to auscultation Cardiovascular: RRR, no murmur, no edema Gastrointestinal (Abdomen): normal bowel sounds, soft, nontender, no hepatosplenomegaly Skin: no rashes, warm and dry Neurologic: normal touch/pain/proprioception, moves all extremities and awake Speech / Cognition: normal speech Motor/Sensory: no tremor Cranial Nerves: sense of smell intact, PERRL, normal accommodation, EOM intact bilaterally, able to rotate head bilaterally and able to elevate shoulders bilaterally; + nystagmus Gait: + gait assisted Coordination: + abnormal [id number] test Motor strength on left upper extremity and lower extremity 4/5 and decreased sensation Discharge Data Allergies Allergy/AdvReac Type Severity Reaction Status Date / Time Tetracyclines Allergy Intermediate Hives Verified 03/26/24 16:00 Consultations 03/26/24 16:25 ED Decision to Admit Stat 03/26/24 19:57 Consult Neurology Routine Ordered Studies 03/26/24 15:28 CT head/brain wo con Stat 03/26/24 15:29 CT angio head w con Stat CT angio neck with con Stat 03/26/24 18:26 MRI Brain [MR brain wo con] Stat Chest X-Ray 03/26/24 15:28 XR chest 1V portable HISTORY: 63 years-old Male stroke alert acute strokelike symptoms COMPARISON: 09/09/2023 TECHNIQUE: AP view the chest FINDINGS: Cardiomediastinal and hilar silhouettes are unchanged. No pneumothorax or pleural effusion. The lungs are clear. Spondylotic spurring of the spine. IMPRESSION: No acute process. ACT 112: Negative or not required by law. The above report was generated using voice recognition software. It may contain grammatical, syntax or spelling errors. Electronically signed by: Vinicius Osman M.D. 03/26/2024 4:[address] 03/26/24 15:28 CT SCAN OF THE BRAIN WITHOUT IV CONTRAST CLINICAL HISTORY: Neurological deficit. Stroke like symptoms. COMPARISON STUDY: CT of the brain dated 09/09/2023. MRI of the brain dated 11/30/2023. TECHNIQUE: Unenhanced axial CT scan of the brain is performed from the vertex to the skull base. A dose lowering technique was utilized adhering to the principles of ALARA. CT DOSE: 547.75 mGy.cm FINDINGS: Brain parenchyma: There is age-related involutional change noting mild sub cortical and periventricular microangiopathic disease. Encephalomalacia centered in the right thalamus is seen at the site of a prior intracranial hemorrhage. There is no hemorrhage, mass effect, or evidence of acute territorial ischemia by CT criteria. There is faint mineralization in the nasal ganglia. Adam-white matter differentiation is preserved. No extra-axial fluid collection is seen. Ventricles, sulci, cisterns: Prominent secondary to involutional change. Intracranial vasculature: There is atherosclerotic calcification of the cavernous carotid and vertebral arteries. Calvarium: Unremarkable. Sinuses and mastoids: There is mild mucosal thickening within the ethmoid and sphenoid sinuses. The mastoid air cells are well pneumatized. Orbits: The bony orbits are grossly intact. IMPRESSION: There is no hemorrhage, mass effect, or evidence of acute territorial ischemia by CT criteria. ACT 112: Negative or not required by law. Electronically signed by: Temo Senior M.D. 03/26/2024 3:45 PM Head CTA 03/26/24 15:29 CT angio head w con CLINICAL HISTORY: 63 years-old Male with L numb. Acute stroke like symptoms COMPARISON STUDY: Head CT of same day TECHNIQUE: Following the IV administration of 116 cc of Optiray, CT angiogram of the brain was performed from the skull base to the vertex. Images are reviewed in the axial, sagittal, and coronal planes. 3-D MIPS images are created and assessed. IV contrast was administered without complication. All measurements were obtained according to NASCET criteria. A dose lowering technique was utilized adhering to the principles of ALARA. CT DOSE: 529.6 mGy.cm FINDINGS: CT ANGIOGRAM OF THE BRAIN: Atherosclerosis noted within the internal carotid arteries, predominantly within the cavernous segments where there is mild stenosis on the left and high-grade stenosis on the right, image 72 series 3. The bilateral anterior and middle cerebral arteries are also patent. Dominant and patent left vertebral artery. Diminutive distal right vertebral artery, likely developmental. The basilar and posterior cerebral arteries appear patent. Dural sinuses appear patent. IMPRESSION: 1. High-grade stenosis of the cavernous segment right ICA secondary to atherosclerotic plaque. 2. Otherwise unremarkable CTA of the head. ACT 112: Negative or not required by law. The above report was generated using voice recognition software. It may contain grammatical, syntax or spelling errors. Electronically signed by: Vinicius Osman M.D. 03/26/2024 4:00 PM Neck CTA 03/26/24 15:29 NECK CTA HISTORY: Left-sided weakness. TECHNIQUE: Multiaxial CT images of the neck were performed following the intravenous administration of contrast to evaluate the major cervical vessels. 3D/MIP images were also obtained. Sagittal and coronal reformats were reviewed. All measurements were calculated based on NASCET criteria. A dose lowering te chnique was utilized adhering to the principles of ALARA. COMPARISON STUDY: CT neck 09/09/2023. Findings: 2 left lobe thyroid nodules measure up to 6 cm. Visualized portions of the lung apices are unremarkable. No cervical spine fracture is present. There is moderate plaque within the proximal bilateral internal carotid arteries. There is mild stenosis of the proximal right internal carotid artery of approximately 30%. No significant stenosis of the left internal carotid artery is noted. The right vertebral artery is diminutive on a congenital basis. The left vertebral artery is dominant and patent. No aneurysm or dissection within the major vessels of the neck. IMPRESSION: 1. Moderate plaque within the proximal bilateral internal carotid arteries. No severe stenoses. 30% stenosis of the proximal right internal carotid artery, unchanged. 2. Dominant, patent left vertebral artery. Diminutive right vertebral artery on a congenital basis. 3. Left lobe thyroid nodules, including a dominant 6 cm nodule. ACT 112: Negative or not required by law. Electronically signed by: Desmond Reeder M.D. 03/26/2024 3:56 PM Brain MRI 03/26/24 18:26 CR Exam(s): MRI HEAD Without Contrast EXAM: MR Head Without Intravenous Contrast CLINICAL HISTORY: Reason for exam: stroke alert. TECHNIQUE: Magnetic resonance images of the head/brain without intravenous contrast in multiple planes. COMPARISON: 11/30/2023 FINDINGS: Brain: Very restricted diffusion involving the right rae radiata. Chronic right thalamic lacunar infarct. No hemorrhage. Ventricles: Unremarkable. No ventriculomegaly. Bones/joints: Unremarkable. No acute fracture. Sinuses: Unremarkable as visualized. No acute sinusitis. Mastoid air cells: Unremarkable as visualized. No mastoid effusion. Orbits: Unremarkable as visualized. IMPRESSION: Subtle acute right rae radiata infarct Communications: Call Doctor Stroke Electronically signed by: Claude Burns MD 03/26/24 21:09 PM Hospital Course (1) Acute CVA (cerebrovascular accident): (2) History of intracerebral hemorrhage without residual deficit: (3) Carotid stenosis, right: (4) Chronic cerebral ischemia: (5) Hemiparesis affecting left side as late effect of cerebrovascular accident: (6) Diabetes mellitus type 2, controlled, with complications: (7) Hypertriglyceridemia: (8) Dyslipidemia: (9) Hypertension: (10) Severe obstructive sleep apnea: Plan 63-year-old male with history of right basilar stroke, hypertensive hemorrhage 08/2023 treated without surgical intervention, has residual left hemiparesis sensory deficits presents to the ER for acute onset of left facial numbness/tingling, left upper/left lower extremity numbness/tingling, and increased left-sided facial droop compared to his normal baseline. Subtle acute right rae radiata infarct - increased left-sided facial droop/numbness, and increased numbness in the left upper extremity/left lower extremity. Now back to baseline - CTA with high grade stenosis on right ICA. Moderate plaque within the proximal bilateral internal carotids. MRI: Subtle acute right rae radiata infarct - Neurology consulted, aprec recommendations Dysphagia screen - for regular heart healthy PT/OT - outpatient PT - Continue Pravastatin 40 mg daily ( home dose) - Plavix 75 mg daily for 3 weeks then decreased to 75 mg every other day - Risk vs benefits discussed with patient. Benefits outweighs risk on the setting of worsening carotid stenosis and new CVA - Tight BP goal: permissive HTN with goal of mean arterial pressure between 100-105 mmHg while admitted. Returned to home BP medication on discharge - We recommenced a tight BP controlled due to hx of hemorrhagic stroke on the setting of Plavix Diabetes mellitus type 2, controlled, with complications: - A1C 6.2 - Lantus 15 untis BID while admitted/ and NPO - Returned to home dose 40 units SQ Lantus at bedtime and Metformin - Patient would benefit for GLP-1 or SGLT2 due CVD benefit, will defer change to his primary care due to possible of side effects on managing his home Lantus and adding a new glycemic drug on the setting of low po intake while inpatient. Will refer this to his PCP History of hemorrhagic stroke with residual hemiparesis: stable Hypertension: Continue home regimen Hypertriglyceridemia: Continue pravastatin - Lipid panel reviewed Severe obstructive sleep apnea: At bedtime CPAP ordered BPH (benign prostatic hyperplasia): Continue Flomax Total Time Total Time Spent Total Time Spent (In Minutes): see attending attestation Discharge Plan Discharge Items Patient Disposition: Home - Self-Care Reason For Visit: STROKE ALERT, HIGH GRADE RIGHT ICA STENOSIS Discharge Diagnosis: Ischemic stroke Activity: Per Instructions section Non-emergency contact: Primary Care Provider Call non-emergency contact if: you have any medication questions, your pain is unusual for you and your temperature is above 101 Follow-up/Referrals: Bahman Polo MD [Primary Care Provider] - 04/08/24 9:00 am (Hospital follow up scheduled April 08 at 9:00 with Jessie Gregg) Diet: Carb Consistent or DM2 Addtl Attending Provider Instructions: You were admitted due to stroke like symptoms. you were found with a new acute ischemic stroke on your brain. After discussion risk and benefit of starting a antiplatelet medication you had been started on a new medication called Plavix 75 mg. * Take this medication daily for 3 weeks then decrease to every other day Because of your history of brain bleed its very important to keep a tight control on your blood pressure. Continue all your home medications as prescribed. Follow-up appointments: * Make a follow-up appointment with your PCP within the next week. It is very important that you follow up with them shortly after discharge from the [facility]. We will send a summary of your care while in the hospital * We have requested a follow up with Neurology for the next 3-4 weeks, it's very important to follow with them CALL 911 OR GO TO THE EMERGENCY DEPARTMENT if you experience any of the following: Sudden, severe abdominal pain or nausea/vomiting Severe chest pain, or chest pain that radiates (moves) to your jaw or arm Sudden, severe shortness of breath or difficulty breathing Thank you for allowing us to participate in your care. Pending Studies at Discharge: No Stand-Alone Forms: My [facility], Smoking Cessation, Medications to Prevent Stroke Medications and DC Order Prescriptions: New clopidogrel 75 mg Tablet 75 mg PO QAM 21 Days Qty: 21 0RF Rx Instructions: Takes one tab daily for 3 weeks, then decrease to every other day Continued (DME) OneTouch Verio test strips Strip See Dose Instructions .ROUTE .MEDSUPPLY Qty: 100 11RF Dose Instruction: As directed Rx Instructions: Test blood sugar 4 times a day hydrochlorothiazide 25 mg tablet 25 mg PO DAILY Qty: 90 3RF carvedilol 6.25 mg tablet 6.25 mg PO BID Qty: 180 3RF Rx Instructions: must administer with a meal/food lisinopril 40 mg tablet 40 mg PO DAILY Qty: 30 5RF (DME) pen needle, diabetic [BD Ultra-Fine Ana M Pen Needle] 32 gauge x 5/32" needle See Rx Instructions .ROUTE .MEDSUPPLY Qty: 100 3RF Rx Instructions: once daily for long acting insulin montelukast 10 mg tablet 10 mg PO DAILY Qty: 90 3RF Rx Instructions: TAKE 1 TABLET BY MOUTH EVERY DAY pravastatin 40 mg tablet 40 mg PO DAILY Qty: 90 3RF (DME) CPAP Machine Misc See Rx Instructions .MEDSUPPLY Qty: 1 0RF Rx Instructions: Auto CPAP 5-20 cm water pressure with heated humidifcation, tubing, and sup plies. THI: 99+ years. insulin glargine [Lantus Solostar U-100 Insulin] 100 unit/mL (3 mL) insulin pen 40 unit subcut HS Qty: 45 3RF (DME) lancets [OneTouch Delica Lancets] 30 gauge misc See Dose Instructions .ROUTE .MEDSUPPLY Qty: 100 12RF Rx Instructions: Test blood sugar four times daily Dulera 100-5 mcg/actuation HFA aerosol inhaler 2 puff inhalation BID tamsulosin [Flomax] 0.4 mg capsule 0.4 mg PO DAILY Qty: 90 3RF metformin 500 mg tablet extended release 24 hr 1,000 mg PO QDD Qty: 180 3RF icosapent ethyl [Vascepa] 1 gram capsule 2 g PO BID Qty: 360 3RF fluticasone propionate 50 mcg/actuation spray,suspension 2 spray intranasal QAM Rx Instructions: SPRAY 2 SPRAYS INTO EACH NOSTRIL EVERY DAY acetaminophen [Tylenol] 325 mg Tablet 650 mg PO Q6H PRN (Reason: Pain (Scale Score 1-3)) cholecalciferol (vitamin D3) [Vitamin D3] 25 mcg (1,000 unit) Capsule 75 mcg PO DAILY Discharge Orders: Discharge Order (Routine); Ordered 03/28/24 Ordered By: Brenda Duque/Other Patient Handouts: High Blood Sugar (Hyperglycemia), Hypoglycemia (Low Blood Sugar), Managing Type 2 Diabetes Admission Data Admit Date/Time: 03/26/24 17:04 Attending Provider: Jax Villarreal Admit Provider: Gustabo Dominique Primary Care Provider: Bahman Polo Other Providers: Gustabo Dominique; Joseph Echevarria Other Interventions: Discharge Summary Assessment (RN) Last Done: 03/28/24 13:48 Supervising Physician Co-Signing Physician Notes Attending attestation Pt seen and examined in concert with Dr. Ferrer. In agreement with the documented findings as noted in the resident documentation with any exceptions or additions as noted here. Essential return to baseline without any new complaints at time of examination. On examination, S1/S2 nl RRR no MCG. CTAB. Abd NT/ND BS+ve. Right rae radiata infarct with history of CVA, ischemic and hemorrhagic - neuro consult - clopidogrel with alterations as noted above. Close monitoring of BP recommended, consider [id number] through PCP if intermittent highs appreciated. Else see resident documentation as noted. Total attending physician time spent with this patient's care on the day of discharge: 35 minutes. Resident Activity Tracking Resident Involvement: Resident Care Provided Care Provided: Adult [facility] Medicine
[2024-03-28] MEDS ORDERED: STROKE PATIENT DISCHARGE STA (13:43)
--- NOTE | 2024-03-29 15:04 | Pharmacy Report ---
Pharmacist Stroke Counseling - Date of Service March 29, 2024 - Scope: Pharmacy has been consulted to provide medication discharge counseling for this patient as per the Pharmacist Discharge Counseling for Stroke Patients Protocol. - Medications on Discharge: Home Medications Medication Instructions Recorded Confirmed fluticasone propionate 50 2 spray intranasal QAM 06/02/23 03/26/24 mcg/actuation nasal spray,suspension acetaminophen 325 mg tablet 650 mg PO Q6H PRN Pain (Scale 09/09/23 03/26/24 (Tylenol) Score 1-3) cholecalciferol (vitamin D3) 25 75 mcg PO DAILY 09/09/23 03/26/24 mcg (1,000 unit) capsule (Vitamin D3) mometasone-formoterol HFA 100 2 puff inhalation BID 09/25/23 03/26/24 mcg-5 mcg/actuation aerosol inhaler (Dulera) New Rx's Medication Instructions Recorded lancets 30 gauge (OneTouch Delica #100 ea 07/24/20 Lancets) OneTouch Verio test strips (blood #100 ea 08/09/21 sugar diagnostic) CPAP Machine #1 ea 01/10/22 icosapent ethyl 1 gram capsule 2 g (2 x 1 gram) PO BID #360 caps 09/25/23 (Vascepa) metformin 500 mg tablet,extended 1,000 mg (2 x 500 mg) PO QDD #180 09/25/23 release 24 hr tabs tamsulosin 0.4 mg capsule (Flomax) 0.4 mg PO DAILY #90 caps 09/25/23 carvedilol 6.25 mg tablet 6.25 mg PO BID #180 tabs 10/02/23 hydrochlorothiazide 25 mg tablet 25 mg PO DAILY #90 tabs 10/02/23 lisinopril 40 mg tablet 40 mg PO DAILY #30 tabs 10/10/23 pen needle, diabetic 32 gauge x #100 ea 10/12/23" (BD Ultra-Fine Ana M Pen Needle) insulin glargine 100 unit/mL (3 40 unit (0.4 mL) subcut HS #45 mL 11/30/23 mL) subcutaneous pen (Lantus Solostar U-100 Insulin) montelukast 10 mg tablet 10 mg PO DAILY #90 tabs 01/22/24 pravastatin 40 mg tablet 40 mg PO DAILY #90 tabs 02/13/24 clopidogrel 75 mg tablet 75 mg PO QAM 3 weeks #21 tabs 03/28/24 - Action: The above medications, specifically ones for stroke treatment/prophylaxis, have been reviewed in detail with the patient after discharge. This includes indication and common adverse reactions. - Outcome: The patient demonstrated understanding of the medications. Additional comments: Ruben noted that he had some low BP readings. He noted he contacted us and it was Dr. Echevarria's recommendation to stop his carvedilol. Ruben planned to follow up about this at his next appointment scheduled in a week. I noted to follow Dr. Echevarria's recommendation, but to monitor BP closely and recommended BID checks. Noted to also monitor heart rate. Counseled to call provider [place] for high or low BP or also a high heart rate. Emphasized the importance of this with his history of hemorrhagic stroke that was potentially precipitated by high BP. Ruben acknowledged understanding and noted he had a BP cuff at home he could use. Thank you for allowing pharmacy to be involved in the care of this patient. Please call [phone] with any additional questions
== END 2024-03-28 14:38 | disposition home or self-care (01) | DRG 65 ==
LOC: ED 15:25 → SUATTDRO 17:04 → 4W 17:04